=== PATIENT | male | born 1985 | race African-American/Black ===

== ENCOUNTER 2016-05-26 08:55 | Emergency (ER) | payer SELFPAY ==
[~2016-05-26] VITALS: Ht 182.9 cm; Wt 80.0 kg
[2016-05-26 08:56] VITALS: BP 134/78; PULSE 62; RESP 14; TEMP 98; O2SAT 98
[2016-05-26] MEDS ORDERED: PROPARACAINE HCL 0.5% OPHT SOLN 15 ML BTL EACH EYE ONE (09:15)
[2016-05-26] MEDS ORDERED: POLY10O EACH EYE (09:31)
--- NOTE | 2016-05-26 09:33 | PD ---
HPI Chief Complaint: Eye Problems/Injury Time Seen by Provider: 09:28 Travel History International Travel<30 days: No Contact w/Intl Traveler<30days: No Traveled to known affect area: No History of Present Illness HPI 36-year-old male presents to the emergency department for evaluation of bilateral eye erythema. He states this started 3 days ago in his left eye and moved to his right eye. He states he wakes up with crusty drainage on his eyes. He denies any itching or pain. No visual changes. He has no chronic medical problems and takes no prescribed medications. He denies any trauma to the eye. He did have some foreign body sensation left eye, but this has resolved. No other complaints. PFSH Past Medical History Bipolar Disorder: Yes Depression: Yes Tetanus Vaccination: < 5 Years Social History Alcohol Use: No Tobacco Use: Yes (1/2 PPD) Substance Use: Yes (marijuana) Allergies-Medications (Allergen,Severity, Reaction): Coded Allergies: Seafood (Unverified Allergy, Unknown, 05/26/16) Shellfish (Unverified Allergy, Unknown, 05/26/16) Reported Meds & Prescriptions Reported Meds & Active Scripts Active No Active Prescriptions or Reported Medications Review of Systems Except as stated in HPI: all other systems reviewed are Neg Physical Exam Narrative GENERAL: Well-developed well-nourished male patient ambulatory. Afebrile., SKIN: Warm and dry. HEAD: Normocephalic. Atraumatic. EYES: No scleral icterus. Bilateral sclerae erythematous. PERRLA. EOM intact. No foreign body seen on upper lid eversion bilaterally. Fluorescein examination is negative. No hyphema. NECK: Supple, trachea midline. No JVD or lymphadenopathy. CARDIOVASCULAR: Regular rate and rhythm without murmurs, gallops, or rubs. RESPIRATORY: Breath sounds equal bilaterally. No accessory muscle use. Lungs sounds are clear to auscultation. MUSCULOSKELETAL: No cyanosis, or edema. Data Data Last Documented VS Vital Signs Date Time Temp Pulse Resp B/P Pulse Ox O2 Delivery O2 Flow Rate FiO2 05/26/16 08:56 98.0 62 14 134/78 98 Orders Proparacaine 0.5% Opth Soln (Alcaine 0.5 (05/26/16 09:15) MDM Medical Decision Making Medical Screen Exam Complete: Yes Emergency Medical Condition: Yes Medical Record Reviewed: Yes Differential Diagnosis Bacterial conjunctivitis versus viral conjunctivitis versus corneal abrasion versus foreign body Narrative Course 30-year-old male presents to the emergency department for evaluation of bilateral eye erythema with crusty drainage. No other symptoms or complaints. Physical exam is reassuring. Visual acuity is 20/40 in the right and 20/25 in the left. Patient will be discharged Diagnosis Primary Impression: Bacterial conjunctivitis of both eyes Referrals: [facility] as needed Patient Instructions: Conjunctivitis (ED), General Instructions Additional Instructions: Use eyedrops as directed. These are $4 at [facility] Warm moist compresses as needed Follow-up with an service parts coordinator symptoms do not improve or worsen. Return to the emergency department for any acute worsening of symptoms. Med/Other Pt SpecificInfo: Prescription(s) given Scripts Polymyxin B-Trimethoprim Opth Drops (Polytrim Opth Drops)10,000-0.1 Unit/Ml-% Soln1 Drop EACH EYE Q6HR 7 Days Ref 0 Prov:Alcira Munguia 05/26/16 Disposition: 01 DISCHARGE HOME Condition: Stable Alcira Munguia May 26, 2016 09:33
== END 2016-05-26 09:45 | disposition home or self-care (01) ==
LOC: NEPB 08:55
DX: H10.89 Other conjunctivitis (principal); B99.9 Unspecified infectious disease; F17.210 Nicotine dependence, cigarettes, uncomplicated
CPT/HCPCS: 99283